=== PATIENT | male | born 1990 | race Hispanic/Latino ===

== ENCOUNTER 2018-04-18 08:45 | Inpatient (IN) | payer OTHER ==
[2018-04-18] MEDS ORDERED: NACL 0.9% 1000 ML 1,000 ML IV ONE (08:59)
[2018-04-18] MEDS ORDERED: MOTRIN ONE (09:00)
[2018-04-18] MEDS ORDERED: ATIVAN IV ONE (09:01)
[2018-04-18] MEDS ORDERED: MOTRIN PO ONE (09:01)
--- NOTE | 2018-04-18 09:06 | Emergency Department Report ---
ED Psych HPI - General Stated Complaint: MEDS NONCOMPLIANT Time Seen by Provider: 04/18/18 08:49 Source: patient, EMS Limitations: No Limitations - History of Present Illness Initial Comments: Mr. Ceja is a 27-year-old male with history of methamphetamine abuse and mental illness. Called EMS for paranoia and erratic behavior. Patient admitted to using "speed". He used $10 worth. He has paranoia. He feels anxious. He has racing thoughts and auditory hallucinations. He denies suicidal or homicidal ideation. He has diffuse muscle aches. According to sister via EMS, he has paranoia and psychosis when he is not taking his psychiatric medications. According to his report, 1 month ago, he was recently admitted to ICU at [facility]. He attempted to overdose on antifreeze. He required dialysis. He was discharged to her sister's house. He has a history of asthma. His sister told EMS that he has a history of hypertension. MD Complaint: other ("I feel paranoid. I want to be on 1013 to go to [place]. ") Associated Psychiatric Symptoms: racing thoughts, auditory hallucinations, other (paranoia) Quality: constant Improves With: none Worsens With: drug use Context: recent drug abuse, not taking psychiatric Associated Symptoms: other (diffuse body pain) Treatments Prior to Arrival: none ED Review of Systems ROS: Stated complaint: MEDS NONCOMPLIANT Other details as noted in HPI Comment: All other systems reviewed and negative Constitutional: denies: fever Respiratory: denies: cough Cardiovascular: denies: chest pain ED Physical Exam - General General appearance: alert, in no apparent distress, other (anxious sweaty pressured speech fairly cooperative obviously paranoid) - Head Head exam: Present: atraumatic, normocephalic - Eye Eye exam: Present: normal appearance, PERRL. Absent: scleral icterus, conjunctival injection - ENT ENT exam: Present: mucous membranes moist - Neck Neck exam: Present: normal inspection - Respiratory Respiratory exam: Present: normal lung sounds bilaterally. Absent: respiratory distress, wheezes, rales, rhonchi - Cardiovascular Cardiovascular Exam: Present: normal rhythm, tachycardia, normal heart sounds. Absent: systolic murmur, diastolic murmur, rubs, gallop - GI/Abdominal GI/Abdominal exam: Present: soft, normal bowel sounds. Absent: distended, tenderness, guarding, rebound - Rectal Rectal exam: Present: deferred - Extremities Exam Extremities exam: Present: normal inspection - Back Exam Back exam: Present: normal inspection - Neurological Exam Neurological exam: Present: alert, oriented X3 - Psychiatric Psychiatric exam: Present: anxious, other (anxious paranoid) - Skin Skin exam: Present: warm, dry, intact, normal color, other (clammy sweaty). Absent: rash ED Course Vital Signs 04/18/18 04/18/18 09:18 09:26 Temperature 99.0 F Pulse Rate 154 H Respiratory 18 18 Rate Blood Pressure 144/58 Blood Pressure 144/58 [Right] O2 Sat by Pulse 99 Oximetry ED Medical Decision Making - Lab Data Result diagrams: 04/18/18 09:04 04/18/18 09:05 - Medical Decision Making Mr. Ceja presents with body aches, paranoia and auditory hallucinations after using methamphetamine. He has a history of mental illness. He denies suicidal or homicidal ideation. Will be admitted to hospitalist service with rhabdomyolysis and KRISTA. Has required hemodialysis for recent antifreeze overdose. Unclear baseline kidney function. Critical care attestation.: If time is entered above; I have spent that time in minutes in the direct care of this critically ill patient, excluding procedure time. ED Disposition Clinical Impression: Rhabdomyolysis, KRISTA (acute kidney injury), Methamphetamine intoxication Disposition: OP ADMIT IP TO THIS HOSP Is pt being admited?: Yes Does the pt Need Aspirin: No Condition: Stable Time of Disposition: 09:57
[2018-04-18 09:17] LABS: Basophils # (Auto) 0.1 K/mm3 (0.0-0.1); Basophils % (Auto) 0.4 % (0.0-1.8); Eosinophils % (Auto) 0.2 % (0.0-4.3); Hematocrit 45.7 % (35.5-45.6); Hemoglobin 15.4 gm/dl (11.8-15.2); Lymphocytes # (Auto) 1.9 K/mm3 (1.2-5.4); Lymphocytes % (Auto) 10.3 % (13.4-35.0); Mean Corpuscular HGB Conc 34 % (32-34); Mean Corpuscular Hemoglobin 28 pg (28-32); Mean Corpuscular Volume 82 fl (84-94); Monocytes # (Auto) 0.9 K/mm3 (0.0-0.8); Monocytes % (Auto) 4.9 % (0.0-7.3); Platelet Count 323 K/mm3 (140-440); Red Blood Count 5.58 M/mm3 (3.65-5.03); Red Cell Distribution Width 14.3 % (13.2-15.2)
[2018-04-18 09:33] LABS: Calcium 9.9 mg/dL (8.4-10.2)
[2018-04-18] MEDS ORDERED: HALDOL ONE (09:39)
[2018-04-18] MEDS ORDERED: NACL 0.9% 1000 ML 2,000 ML IV ONE (09:51)
[2018-04-18] MEDS ORDERED: HALDOL IM ONE (09:59)
--- NOTE | 2018-04-18 10:29 | XRay Report ---
AP CHEST: HISTORY: Cough, wheezing, asthma AP view of the chest demonstrates a normal mediastinal and cardiac contour with clear lungs and normal bony and soft tissue structures. IMPRESSION: Unremarkable AP chest.
[2018-04-18] MEDS ORDERED: NACL 0.9% 1000 ML 1,000 ML ONE (12:15)
--- NOTE | 2018-04-18 12:27 | History and Physical Report ---
History of Present Illness Date of examination: 04/18/18 Date of admission: 04/18/18 10:37 Chief complaint: Psychosis History of present illness: Mr. Ceja is a 27-year-old male with history of HTN, methamphetamine abuse and mental illness presented to ER by EMS for paranoia and erratic behavior. According to sister via EMS, he has paranoia and psychosis when he is not taking his psychiatric medications. According to his report, 1 month ago, he was recently admitted to ICU at [facility]. He attempted to overdose on antifreeze. He required dialysis. He was then discharged to her sister's house. Patient states that he ran out of his meds for 2 days and having diffuse bodyache. He also states that he is currently homeless and was residing with his sister. He denies chest pain or SOB. In the ER he noted to have elevated white count, elevated Cr and CPK. He was called to be admitted under medicine service. Past History Past Medical History: hypertension, other (psychosis) Past Surgical History: No surgical history Social history: smoking. denies: IV drug use Family history: no significant family history. denies: cancer, diabetes, hypertension, stroke Medications and Allergies Allergies Allergy/AdvReac Type Severity Reaction Status Date / Time No Known Allergies Allergy Unverified 04/18/18 09:55 Home Medications Medication Instructions Recorded Confirmed Last Taken Type Unobtainable 04/18/18 04/18/18 Unknown History Active Meds: Active Medications Dextrose/Sodium Chloride (D5ns) 1,000 mls @ 150 mls/hr IV DIRECT MARCOS Piperacillin Sod/Tazobactam Sod (Zosyn/Ns 3.375gm/50ml) 3.375 gm in 50 mls @ 100 mls/hr IV Q8HR MARCOS; Protocol Review of Systems Constitutional: fatigue, malaise, lethargy, chronic pain, no weight loss, no fever, no chills Ears, nose, mouth and throat: no decreased hearing, no nasal discharge, no epistaxis, no vertigo Cardiovascular: no chest pain, no edema, no lightheadedness Respiratory: no cough Gastrointestinal: no abdominal pain, no nausea, no vomiting Genitourinary Male: no hematuria Musculoskeletal: no neck stiffness Integumentary: no rash, no pruritis Neurological: no paralysis, no numbness, no seizures Psychiatric: paranoia Endocrine: no cold intolerance, no heat intolerance Hematologic/Lymphatic: no lymphadenopathy Allergic/Immunologic: no wheezing Exam - Constitutional Vitals: Temp Pulse Resp BP Pulse Ox 98.7 F 109 H 32 H 105/58 100 04/18/18 11:13 04/18/18 12:15 04/18/18 12:15 04/18/18 12:15 04/18/18 12:15 General appearance: Present: no acute distress, well-nourished - EENT Eyes: Present: PERRL ENT: hearing intact, clear oral mucosa - Neck Neck: Present: supple, normal ROM - Respiratory Respiratory effort: normal Respiratory: bilateral: CTA - Cardiovascular Heart Sounds: Present: S1 & S2. Absent: rub, click - Extremities Extremities: pulses symmetrical, No edema Peripheral Pulses: within normal limits - Abdominal General gastrointestinal: Present: soft, non-tender, non-distended, normal bowel sounds - Integumentary Integumentary: Present: clear, warm, dry - Musculoskeletal Musculoskeletal: gait normal, strength equal bilaterally - Psychiatric Psychiatric: memory intact, cooperative - Neurologic Neurologic: CNII-XII intact, moves all extremities Results - Labs CBC & Chem 7: 04/19/18 02:26 04/19/18 02:26 Labs: Abnormal lab results 04/18/18 04/18/18 Range/Units 09:04 09:05 WBC 18.7 H (4.5-11.0) K/mm3 RBC 5.58 H (3.65-5.03) M/mm3 Hgb 15.4 H (11.8-15.2) gm/dl Hct 45.7 H (35.5-45.6) % MCV 82 L (84-94) fl Lymph % (Auto) 10.3 L (13.4-35.0) % [place] # 0.9 H (0.0-0.8) K/mm3 Seg Neutrophils % 84.2 H (40.0-70.0) % Seg Neutrophils # 15.8 H (1.8-7.7) K/mm3 Chloride 89.6 L (98-107) mmol/L Carbon Dioxide 21 L (22-30) mmol/L BUN 44 H (9-20) mg/dL Creatinine 2.7 H (0.8-1.5) mg/dL Glucose 67 L (75-100) mg/dL Total Bilirubin 1.30 H (0.1-1.2) mg/dL AST 358 H (5-40) units/L ALT 83 H (7-56) units/L Total Creatine Kinase 96015 H (55-170) units/L Total Protein 8.8 H (6.3-8.2) g/dL - Imaging and Cardiology Chest x-ray: report reviewed (unremarkable) Assessment and Plan SIRS, source unknown Rhabdomyolysis Elevated bilirubin KRISTA, likley vasomoter nephropathy hypoglycemia Psychosis with h/o mental illness h/o substance abuse Homelessness - admit to medicine - cont iv fluid, monitor BG - start on regular diet -place on empiric abx, blood cx, UA - get mental health consult, obtain UDS - place on empiric abx till Cx negative - provide supportive care - monitor BMP, CPK, LFT - DVT Px, CM consult
[2018-04-18] MEDS: D5NS 1,000 ML IV SCH (17:00)
[2018-04-18] MEDS: ZOSYN/NS 3.375GM/50ML 3.375 GM/50 ML BAG IV SCH ×2 (17:40→22:41)
[2018-04-18] MEDS ORDERED: HEPARIN SUB-Q SCH (22:00)
[2018-04-19 02:39] LABS: Basophils # (Auto) 0.1 K/mm3 (0.0-0.1); Basophils % (Auto) 0.7 % (0.0-1.8); Eosinophils # (Auto) 0.2 K/mm3 (0.0-0.4); Eosinophils % (Auto) 2.4 % (0.0-4.3); Hematocrit 39.7 % (35.5-45.6); Hemoglobin 13.4 gm/dl (11.8-15.2); Lymphocytes # (Auto) 3.3 K/mm3 (1.2-5.4); Lymphocytes % (Auto) 35.6 % (13.4-35.0); Mean Corpuscular HGB Conc 34 % (32-34); Mean Corpuscular Hemoglobin 28 pg (28-32); Mean Corpuscular Volume 83 fl (84-94); Monocytes # (Auto) 0.9 K/mm3 (0.0-0.8); Platelet Count 220 K/mm3 (140-440); Red Blood Count 4.78 M/mm3 (3.65-5.03); Red Cell Distribution Width 14.4 % (13.2-15.2)
[2018-04-19 03:10] LABS: Alanine Aminotransferase 55 units/L (7-56); BUN/Creatinine Ratio 29; Blood Urea Nitrogen 29 mg/dL (9-20); Calcium 8.5 mg/dL (8.4-10.2); Hemolysis Index 7
[2018-04-19 03:57] LABS: Albumin 3.9 g/dL (3.9-5)
[2018-04-19] MEDS: ZOSYN/NS 3.375GM/50ML 3.375 GM/50 ML BAG IV SCH (05:53)
[2018-04-19] MEDS: D5NS 1,000 ML IV SCH (05:53)
[2018-04-19 09:09] VITALS: BP 112/67
--- NOTE | 2018-04-19 09:32 | Discharge Summary ---
Providers - Providers Date of Admission: 04/18/18 10:37 Attending physician: VINI HOOKS 04/18/18 15:35 Consult to Mental Health [CONS] Routine Reason For Exam: psychosis Place consult to:: mental health Notified:: yes Was contact made?: Yes Time called:: 15:50 Primary care physician: FREIDA CAUSEY MD Hospitalization Condition: Stable Core Measure Documentation - Palliative Care Palliative Care/ Comfort Measures: Not Applicable Exam - Constitutional Vitals: Temp Pulse Resp BP Pulse Ox 97.9 F 76 20 112/67 97 04/19/18 08:13 04/19/18 08:13 04/19/18 08:13 04/19/18 08:13 04/19/18 08:13 Plan Follow up with: PRIMARY MD PADILLA [Primary Care Provider] - 7 Days
== END 2018-04-19 08:00 | disposition left against medical advice (07) | DRG 683 ==
LOC: ED 08:45 → 4A 10:37
PROVIDERS: ADMIT Hospitalist; ATTEND Internal Medicine
DX: N17.9 Acute kidney failure, unspecified (principal); M62.82 Rhabdomyolysis; R65.10 Systemic inflammatory response syndrome (SIRS) of non-infectious origin without acute organ dysfunction; F15.929 Other stimulant use, unspecified with intoxication, unspecified; I10 Essential (primary) hypertension; E16.2 Hypoglycemia, unspecified; F29 Unspecified psychosis not due to a substance or known physiological condition; Z59.0 Homelessness
CPT/HCPCS: 36415; 71045; 80053; 80320; 82550; 82962; 85025; 87040; G0480; J1630; J1644; J2060; J2543; J7030; J7042